=== PATIENT | male | born 1975 | race Caucasian/White ===

== ENCOUNTER 2020-07-06 19:06 | Inpatient (IN) | payer OTHER ==
[~2020-07-06] VITALS: Ht 185.4 cm; Wt 101.6 kg
[2020-07-06] MEDS ORDERED: LEVETIRACETAM500 M3 PO (19:27)
[2020-07-06] MEDS ORDERED: DEXA2 PO (19:31)
[2020-07-06 19:39] LABS: BASOPHILS ABSOLUTE AUTO 0.02 K/mm3 (0.00-0.23); BASOPHILS PERCENT AUTO 0 % (0-2); EOSINOPHILS ABSOLUTE AUTO 0.03 K/mm3 (0.00-0.68); EOSINOPHILS PERCENT AUTO 0 % (0-6); Hematocrit 42.5 % (37.0-53.0); Hemoglobin 14.9 g/dL (13.5-17.5); IMMATURE GRAN ABSOLUTE AUTO 0.27 K/mm3 (0.00-0.10); IMMATURE GRAN PERCENT AUTO 3 % (0-1); LYMPHOCYTES ABSOLUTE AUTO 0.72 K/mm3 (0.84-5.20); LYMPHOCYTES PERCENT AUTO 8 % (21-46); MONOCYTES ABSOLUTE AUTO 0.51 K/mm3 (0.16-1.47); MONOCYTES PERCENT AUTO 6 % (4-13); Mean Corpuscular HGB 30.1 pg (26.0-34.0); Mean Corpuscular HGB Conc 35.1 g/dL (31.5-36.5); Mean Corpuscular Volume 86 fL (80-100); Mean Platelet Volume 8.3 fL (9.1-12.4); NEUTROPHILS ABSOLUTE AUTO 7.21 K/mm3 (1.96-9.15); NEUTROPHILS PERCENT AUTO 82 % (41-73); Platelet Count 174 K/mm3 (150-400); RDW Coefficient Variation 13.1 % (11.7-14.2); RDW Standard Deviation 40.6 fL (35.1-46.3); Red Blood Cell Count 4.95 M/mm3 (4.30-5.90); White Blood Cell Count 8.76 K/mm3 (4.00-11.30)
[2020-07-06 19:57] LABS: Alanine Aminotransfer (ALT/SGP 69 U/L (12-78); Albumin, Blood 3.3 g/dL (3.4-5.0); Albumin/Globulin Ratio 0.8 (0.8-1.8); Alk Phos 78 U/L (50-136); Anion Gap 10 mmol/L (6-16); Aspartate Aminotrans (AST/SGOT 17 U/L (12-37); Bilirubin, Total 2.1 mg/dL (0.1-1.0); Blood Urea Nitrogen 15 mg/dL (8-24); Bun/Creatinine Ratio 28.6 (12.0-20.0); CO2, Blood 26 mmol/L (21-32); Chloride, Blood 91 mmol/L (98-108); Creatinine, Blood 0.52 mg/dL (0.60-1.20); Globulin, Blood 4.2 g/dL (2.2-4.0); Glomerular Filtration Rate >60 (60-); Glucose, Blood 126 mg/dL (70-99); Sodium, Blood 127 mmol/L (136-145); Total Protein, Blood 7.5 g/dL (6.4-8.2)
[2020-07-06] MEDS ORDERED: Dilaudid 2 mg Ta2 MG PO (21:06)
[2020-07-06] MEDS ORDERED: Ondansetron Odt8 MG SL (21:07)
[2020-07-07 04:22] LABS: BASOPHILS ABSOLUTE AUTO 0.02 K/mm3 (0.00-0.23); BASOPHILS PERCENT AUTO 0 % (0-2); EOSINOPHILS PERCENT AUTO 0 % (0-6); Hematocrit 39.1 % (37.0-53.0); Hemoglobin 13.6 g/dL (13.5-17.5); IMMATURE GRAN PERCENT AUTO 4 % (0-1); LYMPHOCYTES ABSOLUTE AUTO 0.42 K/mm3 (0.84-5.20); LYMPHOCYTES PERCENT AUTO 6 % (21-46); MONOCYTES ABSOLUTE AUTO 0.29 K/mm3 (0.16-1.47); MONOCYTES PERCENT AUTO 4 % (4-13); Mean Corpuscular HGB Conc 34.8 g/dL (31.5-36.5); Mean Corpuscular Volume 86 fL (80-100); Mean Platelet Volume 8.4 fL (9.1-12.4); NEUTROPHILS ABSOLUTE AUTO 6.45 K/mm3 (1.96-9.15); NEUTROPHILS PERCENT AUTO 86 % (41-73); Platelet Count 185 K/mm3 (150-400); RDW Coefficient Variation 13.1 % (11.7-14.2); RDW Standard Deviation 40.8 fL (35.1-46.3); Red Blood Cell Count 4.54 M/mm3 (4.30-5.90); White Blood Cell Count 7.48 K/mm3 (4.00-11.30)
--- NOTE | 2020-07-07 04:36 | NUR ---
ASSUMED CARE REPORT RECIEVED FROM ICU NURSE. PT TRANSFERRED TO UNIT BY BED. VS STABLE UPON ADMIT.
[2020-07-07 04:47] LABS: Anion Gap 9 mmol/L (6-16); Blood Urea Nitrogen 11 mg/dL (8-24); Bun/Creatinine Ratio 19.6 (12.0-20.0); CO2, Blood 25 mmol/L (21-32); Calcium, Blood 8.6 mg/dL (8.5-10.1); Chloride, Blood 94 mmol/L (98-108); Creatinine, Blood 0.56 mg/dL (0.60-1.20); Glomerular Filtration Rate >60 (60-); Glucose, Blood 128 mg/dL (70-99); Potassium, Blood 3.8 mmol/L (3.5-5.5); Sodium, Blood 128 mmol/L (136-145)
--- NOTE | 2020-07-07 06:45 | NUR ---
SHIFT SUMMARY PT SLEPT T/O NIGHT. PT EXHIBITS WEAKNESS IN R ARM. PT ABLE TO STATE NAME AND 'S NAME, DOES NOT KNOW CURRENT LOCATION. PT'S SPEECH IMPROVED T/O SHIFT. VS STABLE. PT REPORTS NO PAIN. 02 SATURATION ABOVE 92% ON RA. VS STABLE. NO SEIZURE ACTIVITY DURING SHIFT. BED IN LOW POSITION, SIDE RAILS PADDED FOR SEIZURE PRECAUTIONS. WILL CONTINUE TO MONITOR UNTIL SHIFT REPORT GIVEN TO ONCOMING DAYSHIFT RN.
--- NOTE | 2020-07-07 17:18 | NUR ---
SHIFT SUMMARY THIS AM PT RESPONDING TO VERBAL STIMULI; PT WAKING TO ANSWER QUESTIONS BUT WOULD FALL BACK ASLEEP. THIS AFTERNOON PT A&Ox4; CALM AND COOPERATIVE WITH CARE. PT RESTING IN BED DURING SHIFT; REPOSITIONING SELF IN BED. PT DENIES PAIN, CHEST PAIN, SOB, NAUSEA AND DIZZINESS. PT STATES HE IS FEELING BETTER. VSS. NOTIIFED DR COSTLELO OF IMPROVEMENT; NEW ORDERS FOR MED WITH NO TELE; REG DIET. NO OTHER ACUTE CHANGES NOTED DURING SHIFT. WILL CONTINUE TO MONITOR UNTIL REPORT GIVEN TO ONCOMING RN.
[2020-07-07] MEDS ORDERED: ACET325 PO (18:59)
--- NOTE | 2020-07-07 19:26 | NUR ---
PT ADAMANT ABOUT GOING HOME TONIGHT; STATES HE WILL RECOVER BETTER AT HOME WHERE HE IS COMFORTABLE. PT TOLERATED DINNER AND UP WITH SBA TO SHOWER. NOTIFIED DR COSTELLO; NEW ORDERS FOR DISCHARGE. PRESCRIPTIONS FAXED TO [facility] PER PT REQUEST. DIANELYS RN EDUCATED PT ON DISCHARGE INSTURCTIONS, FOLLOW UP APPOINTMENTS AND MEDICATION. PT LEFT ROOM VIA WHEELCHAIR AT 1920.
== END 2020-07-07 19:23 | disposition home or self-care (01) | DRG 54 ==
LOC: ER 19:06 → PCU 19:07
PROVIDERS: Emergency Medicine; Nurse Practitioner Acute Care; ADMIT Internal Medicine
DX: C79.31 Secondary malignant neoplasm of brain (principal); G93.6 Cerebral edema; E87.1 Hypo-osmolality and hyponatremia; R56.9 Unspecified convulsions; Z98.52 Vasectomy status; C43.62 Malignant melanoma of left upper limb, including shoulder; E86.0 Dehydration
CPT/HCPCS: 36415; 70450; 80048; 80053; 83690; 85025; 93005; 93010; 94762; 96365; 96375; 96376; 99283-25; G0378; J1100; J1953; J2405; J7030

== ENCOUNTER 2020-07-21 10:05 | Inpatient (IN) | payer OTHER ==
[~2020-07-21] VITALS: Ht 177.8 cm; Wt 104.3 kg
[~2020-07-21 10:05] MED LIST: ACET325 PO; DEXA2 PO; Dilaudid 2 mg Ta2 MG PO; LEVETIRACETAM500 M3 PO; Ondansetron Odt8 MG MM
[2020-07-21 10:36] LABS: BASOPHILS ABSOLUTE AUTO 0.08 K/mm3 (0.00-0.23); BASOPHILS PERCENT AUTO 1 % (0-2); EOSINOPHILS PERCENT AUTO 0 % (0-6); Hematocrit 46.1 % (37.0-53.0); Hemoglobin 16.2 g/dL (13.5-17.5); IMMATURE GRAN ABSOLUTE AUTO 0.68 K/mm3 (0.00-0.10); IMMATURE GRAN PERCENT AUTO 5 % (0-1); LYMPHOCYTES ABSOLUTE AUTO 2.23 K/mm3 (0.84-5.20); LYMPHOCYTES PERCENT AUTO 17 % (21-46); MONOCYTES ABSOLUTE AUTO 0.94 K/mm3 (0.16-1.47); MONOCYTES PERCENT AUTO 7 % (4-13); Mean Corpuscular HGB 29.9 pg (26.0-34.0); Mean Corpuscular HGB Conc 35.1 g/dL (31.5-36.5); Mean Corpuscular Volume 85 fL (80-100); Mean Platelet Volume 8.7 fL (9.1-12.4); NEUTROPHILS ABSOLUTE AUTO 9.17 K/mm3 (1.96-9.15); NEUTROPHILS PERCENT AUTO 70 % (41-73); Platelet Count 458 K/mm3 (150-400); RDW Coefficient Variation 13.3 % (11.7-14.2); RDW Standard Deviation 41.2 fL (35.1-46.3); Red Blood Cell Count 5.41 M/mm3 (4.30-5.90)
[2020-07-21 10:54] LABS: Alanine Aminotransfer (ALT/SGP 2107 U/L (12-78); Albumin, Blood 2.8 g/dL (3.4-5.0); Albumin/Globulin Ratio 0.7 (0.8-1.8); Alk Phos 463 U/L (50-136); Anion Gap 7 mmol/L (6-16); Aspartate Aminotrans (AST/SGOT 544 U/L (12-37); Bilirubin, Total 8.3 mg/dL (0.1-1.0); Blood Urea Nitrogen 13 mg/dL (8-24); Bun/Creatinine Ratio 24.8 (12.0-20.0); CO2, Blood 26 mmol/L (21-32); Chloride, Blood 100 mmol/L (98-108); Creatinine, Blood 0.53 mg/dL (0.60-1.20); Globulin, Blood 4.1 g/dL (2.2-4.0); Glomerular Filtration Rate >60 (60-); Glucose, Blood 130 mg/dL (70-99); Potassium, Blood 4.5 mmol/L (3.5-5.5); Sodium, Blood 133 mmol/L (136-145); Total Protein, Blood 6.9 g/dL (6.4-8.2)
[2020-07-21] MEDS ORDERED: NYSTATIN100000 UN2 MM (16:08)
[2020-07-21] MEDS ORDERED: DEXA4 PO (16:09)
--- NOTE | 2020-07-21 16:30 | NUR ---
Initial palliative care consult: Requested by [facility] social service in ER, to come visit with pt and prior to dc back home. Pt and visited in ER 14. 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 He had a gamma knife procedure X 2 and immunotherapy all recently. They state that he doesn't want to continue with the immunotherapy. He would like to pursue naturopathic treatment for his cancer. They are not wanting "anything toxic" to be put into his system. He is followed by an oncologist in [place]. They are wanting home health set up for IV fluids at home. Mikala states he has been unable to keep food and fluids down for about 5 days. He came into the ER to get IV fluids. He has sores in his mouth which his oncologist believes to be thrush and he was started on nystatin yesterday for this. He has had one dose. Kimi answers most of the questions, however, Mikala would interject his thoughts during the conversation without ever opening his eyes. They state that his oncologist has never talked to him about hospice as an option. Neither Mikala or Kimi are open to considering hospice at this time. Mikala wants fluids and to keep trying naturopathic treatments. He is requesting to be admitted as he is fearful that if he goes home he will come right back for fluids because he is unable to take in fluids. He has mostly been bedbound at home recently. Spoke with [facility], Shama, and Dr. Prado. Chart reviewed. Dr. Prado states pt's lab work (LFTs) have significantly elevated since last admission. He will contact hospitalist for hospital admission. PC will work with pt and Kimi re: advanced care planning. At this time they are not open to hospice as an option. He wants to remain a full code and purse treatment at this time. Will follow for symptom managment and advanced care planning and support.
[2020-07-21] MEDS ORDERED: HYDMOR2 PO (18:22)
[2020-07-22 03:33] LABS: Source, Urine Clean Catch
[2020-07-22 03:35] LABS: Appearance, Urine Clear (Clear); Blood, Urine 2+ (Neg); Color, Urine Amber (P-Yellow); Glucose Qualitative, Urine Neg (Neg); Ketones, Urine 3+ (Neg); Leukocyte Esterase, Urine 1+ (Neg); Nitrite, Urine Neg (Neg); Protein, Urine 1+ (Neg); Specific Gravity, Urine 1.015 (1.003-1.022); Urobilinogen, Urine 2+ (Normal)
[2020-07-22 03:36] LABS: Bilirubin, Urine 3+ (Neg)
[2020-07-22 03:41] LABS: Bacteria Mod /hpf; Squamous Epithelial Cells Not Seen /hpf (Few); White Blood Cells, Urine 0-2 /hpf (0-5)
[2020-07-22 03:42] LABS: Hyaline Casts 0-2 /lpf (0-2); WBC Cast 0-2 /lpf (0)
[2020-07-22 04:37] LABS: Hematocrit 42.7 % (37.0-53.0); Hemoglobin 14.4 g/dL (13.5-17.5); Mean Corpuscular HGB 29.5 pg (26.0-34.0); Mean Corpuscular HGB Conc 33.7 g/dL (31.5-36.5); Mean Corpuscular Volume 88 fL (80-100); Mean Platelet Volume 9.1 fL (9.1-12.4); Platelet Count 337 K/mm3 (150-400); RDW Coefficient Variation 13.4 % (11.7-14.2); Red Blood Cell Count 4.88 M/mm3 (4.30-5.90); White Blood Cell Count 7.62 K/mm3 (4.00-11.30)
--- NOTE | 2020-07-22 04:38 | NUR ---
SUMMARY PT ARRIVED TO FLOOR IN DISCOMFORT. PT C/O MOUTH AND HEAD PAIN. PT TX PER EMAR WITH GOOD RELIEF. PT IN ATTENDENCE. PT IS REQUIRING FREQUENT ORAL SUCTIONING FOR THICK SECRETIONS. DESPITE SECRETIONS PT C/O DRY MOUTH. PT IS FREQUENTLY PERFORMING ORAL CARE ON PT TO INCREASE COMFORT. PT DID C/O OF SOME NAUSEA LATER IN SHIFT. PT HAS VOIDED DARK LEESA URINE, UA SENT TO LAB. PT IS CURRENTLY SLEEPING AND BREATHING EASY. CALL LIGHT IN REACH.
[2020-07-22 05:15] LABS: BAND PERCENT MAN 4 % (0-8); BASOPHILS PERCENT MAN 0 % (0-2); EOSINOPHILS PERCENT MAN 0 % (0-6); LYMPHOCYTES ABSOLUTE MAN 0.99 K/mm3 (0.84-5.20); LYMPHOCYTES PERCENT MAN 13 % (21-46); METAMYELOCYTE ABSOLUTE MAN 0.07 K/mm3 (0.00-0.00); METAMYELOCYTE PERCENT MAN 1 % (0-0); MONOCYTES ABSOLUTE MAN 0.38 K/mm3 (0.16-1.47); MONOCYTES PERCENT MAN 5 % (4-13); NEUTROPHILS ABSOLUTE MAN 6.17 K/mm3 (1.96-9.15); SEG NEUTROPHILS PERCENT MAN 77 % (41-73); TOTAL CELLS COUNTED 100
[2020-07-22 05:17] LABS: Alanine Aminotransfer (ALT/SGP 1771 U/L (12-78); Albumin, Blood 2.4 g/dL (3.4-5.0); Albumin/Globulin Ratio 0.6 (0.8-1.8); Alk Phos 419 U/L (50-136); Anion Gap 6 mmol/L (6-16); Aspartate Aminotrans (AST/SGOT 366 U/L (12-37); Bilirubin, Total 8.3 mg/dL (0.1-1.0); Blood Urea Nitrogen 7 mg/dL (8-24); Bun/Creatinine Ratio 14.6 (12.0-20.0); CO2, Blood 27 mmol/L (21-32); Calcium, Blood 8.3 mg/dL (8.5-10.1); Chloride, Blood 102 mmol/L (98-108); Creatinine, Blood 0.48 mg/dL (0.60-1.20); Globulin, Blood 3.7 g/dL (2.2-4.0); Glomerular Filtration Rate >60 (60-); Glucose, Blood 117 mg/dL (70-99); Potassium, Blood 3.6 mmol/L (3.5-5.5); Sodium, Blood 135 mmol/L (136-145); Total Protein, Blood 6.1 g/dL (6.4-8.2)
[2020-07-22 14:15] LABS: International Normalized Ratio 1.14; Prothrombin Time Results 12.1 Sec (9.7-11.5)
[2020-07-22 14:27] LABS: Alanine Aminotransfer (ALT/SGP 1566 U/L (12-78); Albumin, Blood 2.3 g/dL (3.4-5.0); Albumin/Globulin Ratio 0.6 (0.8-1.8); Alk Phos 420 U/L (50-136); Anion Gap 4 mmol/L (6-16); Aspartate Aminotrans (AST/SGOT 341 U/L (12-37); Bilirubin, Total 8.2 mg/dL (0.1-1.0); Blood Urea Nitrogen 7 mg/dL (8-24); Bun/Creatinine Ratio 13.6 (12.0-20.0); CO2, Blood 30 mmol/L (21-32); Calcium, Blood 8.6 mg/dL (8.5-10.1); Chloride, Blood 101 mmol/L (98-108); Creatinine, Blood 0.52 mg/dL (0.60-1.20); Globulin, Blood 3.6 g/dL (2.2-4.0); Glomerular Filtration Rate >60 (60-); Glucose, Blood 107 mg/dL (70-99); Potassium, Blood 3.9 mmol/L (3.5-5.5); Sodium, Blood 135 mmol/L (136-145); Total Protein, Blood 5.9 g/dL (6.4-8.2)
--- NOTE | 2020-07-22 18:25 | NUR ---
SHIFT SUMMARY. A&OX3, AWARE OF LIMITATIONS, AT BEDSIDE MOST OF THE SHIFT ASSISTING PT WITH URINAL AND SUCTIONING. PT REQUIRED SUCTIONING WITH ORAL CARE SEVERAL TIMES THIS SHIFT, APPROXIMATLEY Q1-2H. PT C/O SOB WHEN SUCTIONING IS NEEDED, SOB RESOLVES WITH SUCTIONING, SECRETIONS ARE THICK YELLOWISH GREEN MUCUS. PT REPORTS PAIN TO HEAD AND MOUTH, PAIN MANAGED WELL WITH CURRENT ORDERS, SEE MAR. PT WITH DIFFUSE RASH TO CHEST, BACK, AND HEAD, PT C/O SEVERE ITCHINESS, DR. HOLDEN NOTIFIED AND RECIEVED ORDERS FOR HYDROCORTISONE CREAM, CREAM GAVE PT RELIEF. ABD ULTRASOUND AND CXR COMPLETED THIS SHIFT. PT STARTED ON IV CLINIMIX TODAY THERE HAS BEEN NO PO INTAKE. NO OTHER CHANGES OR CONCERNS.
--- NOTE | 2020-07-23 03:47 | NUR ---
EMAIL PRODUCER SUMMARY PT EXPERIENCING INCREASED PAIN TONIGHT AND REQUESTED FULL DOSE OF PAIN MEDICATION MULTIPLE TIMES. PT DECLINED THE INSERTION OF A SECOND IV SO THAT MULTIPLE FLUIDS/MEDS COULD BE GIVEN CONCURRENTLY AND EXPRESSED HIS DESIRE FOR A MULTPLE LUMEN LINE SO THAT LAB WOULDNT HAVE TO "POKE" HIM SO MANY TIMES. PT'S SECRETIONS APPEAR MODERATLEY DECREASED HE HAS REQUIRED LESS SUCTIONING THIS SHIFT. PT DISPLAYED INCREASED AGITATION THIS SHIFT DUE TO PAIN AND EXHAUSTION BUT DECLINED THE DESIRE FOR ANY MEDICATION FOR SLEEP.
--- NOTE | 2020-07-23 05:57 | NUR ---
PT REFUSED TO HAVE LABS DRAWN THIS AM BECAUSE HE WANTED TO SLEEP UNDISTURBED AND DID NOT WANT TO BE POKED AGAIN.
[2020-07-23 13:51] LABS: Albumin, Blood 2.3 g/dL (3.4-5.0); Albumin/Globulin Ratio 0.6 (0.8-1.8); Alk Phos 432 U/L (50-136); Anion Gap 6 mmol/L (6-16); Aspartate Aminotrans (AST/SGOT 376 U/L (12-37); Bilirubin, Total 6.2 mg/dL (0.1-1.0); Blood Urea Nitrogen 11 mg/dL (8-24); CO2, Blood 29 mmol/L (21-32); Calcium, Blood 9.1 mg/dL (8.5-10.1); Chloride, Blood 103 mmol/L (98-108); Creatinine, Blood 0.33 mg/dL (0.60-1.20); Globulin, Blood 3.8 g/dL (2.2-4.0); Glomerular Filtration Rate >60 (60-); Glucose, Blood 138 mg/dL (70-99); Potassium, Blood 3.9 mmol/L (3.5-5.5); Sodium, Blood 138 mmol/L (136-145); Total Protein, Blood 6.1 g/dL (6.4-8.2)
[2020-07-23 13:57] LABS: Alanine Aminotransfer (ALT/SGP 1534 U/L (12-78)
--- NOTE | 2020-07-23 19:30 | NUR ---
SHIFT SUMMARY. PT IN CONSTANT PAIN THIS SHIFT, PAIN MANAGED WELL WITH CURRENT ORDERS. NO N/V. PT REPORTS SOB WHEN NEEDING ORAL CARE AND SUCTIONING. AT BEDSIDE MOST OF SHIFT PROVIDING ORAL CARE AND EYE COMPRESSES. PT SEEN BY DERMATOLOGY, ENT TODAY, RN TO CALL IN OPTHAMOLOGY CONSULT IN AM. CIPRO EYE DROPS STARTED TODAY. NO OTHER CHANGES OR CONCERNS.
[2020-07-24 06:48] LABS: Albumin, Blood 2.3 g/dL (3.4-5.0); Albumin/Globulin Ratio 0.6 (0.8-1.8); Alk Phos 475 U/L (50-136); Anion Gap 6 mmol/L (6-16); Aspartate Aminotrans (AST/SGOT 423 U/L (12-37); Bilirubin, Total 6.3 mg/dL (0.1-1.0); Blood Urea Nitrogen 12 mg/dL (8-24); Bun/Creatinine Ratio 26.7 (12.0-20.0); CO2, Blood 28 mmol/L (21-32); Calcium, Blood 8.7 mg/dL (8.5-10.1); Chloride, Blood 101 mmol/L (98-108); Creatinine, Blood 0.45 mg/dL (0.60-1.20); Globulin, Blood 3.8 g/dL (2.2-4.0); Glomerular Filtration Rate >60 (60-); Glucose, Blood 155 mg/dL (70-99); Magnesium, Blood 2.7 mg/dL (1.6-2.4); Phosphorus, Blood 3.5 mg/dL (2.5-4.9); Potassium, Blood 4.8 mmol/L (3.5-5.5); Sodium, Blood 135 mmol/L (136-145); Total Protein, Blood 6.1 g/dL (6.4-8.2); Triglycerides 447 mg/dL (30-160)
[2020-07-24 06:51] LABS: Alanine Aminotransfer (ALT/SGP 1601 U/L (12-78)
--- NOTE | 2020-07-24 07:28 | NUR ---
SHIFT SUMMARY AOX4. VSS. DENIES NAUSEA OR DYSPNEA. REPORTS 8-10/10 PAIN ALLOVER FACE, HEAD, MOUTH, NECK, MEDICATED 3X c 2MG IV DILAUDID, PT REPORTS RELIEF-PAIN LEVEL DECREASING TO 4/10. PT REFUSED CIPRO EYE DROPS T/O NIGHT, STATED HE WAS WEARY TO USE UNTIL THEY FIGURED OUT DX OF WHAT WAS CAUSING RASH. PT ASKED FOR REG NATURAL EYE DROPS, DR FLORENCE ORDERED. RED RASH c OPEN BLISTERS ARE SCATTERED T/O UPPER TORSO, NECK, HEAD, FACE-SOME ARE WEEPING SMALL AMOUNT YELLOWISH DRAINAGE. PT USING SUCTION FOR ORAL SORES. STATES IT IS TOO PAINFUL TO OPEN EYES. CALL LIGHT IN REACH & HAS BEEN @BEDSIDE T/O NIGHT.
[2020-07-24 09:09] LABS: COMPLEMENT C3, SERUM 174 mg/dL (82-167); COMPLEMENT C4, SERUM 24 mg/dL (14-44)
--- NOTE | 2020-07-24 16:39 | NUR ---
DISCHARGE PT DISCHARGED TO [facility] VIA AMBULANCE. THIS RN GAVE REPORT TO RN AT [facility]. PT 4 PERSON SLIDE TO JOEL. PETROLEUM DRESSINGS PLACED TO BLISTERS AND OPEN AREAS OF BACK PER DR. COCHRAN RECOMMENDATION. BELONGINGS WITH PT'S . CLINIMIX AND LIPIDS WITH PT INFUSING.
[2020-07-24 18:09] LABS: ANTI-DSDNA ANTIBODIES 1 IU/mL (0-9); RNP ANTIBODIES <0.2 AI (0.0-0.9); SJOGREN'S ANTI-SS-A 0.3 AI (0.0-0.9); SJOGREN'S ANTI-SS-B <0.2 AI (0.0-0.9); SMITH ANTIBODIES <0.2 AI (0.0-0.9)
[2020-07-25 00:10] LABS: HBSAG SCREEN Negative (Negative); HEP A AB, IGM Negative (Negative); HEP B CORE AB, IGM Negative (Negative); HEP C VIRUS AB <0.1 (0.0-0.9)
== END 2020-07-24 16:30 | disposition short-term general hospital (02) | DRG 871 ==
LOC: ER 10:05 → MEDS 20:15
PROVIDERS: Emergency Medicine; Family Medicine; Internal Medicine Gastroenterology; ADMIT Internal Medicine
DX: A41.9 Sepsis, unspecified organism (principal); J18.9 Pneumonia, unspecified organism; E43 Unspecified severe protein-calorie malnutrition; B37.0 Candidal stomatitis; C79.31 Secondary malignant neoplasm of brain; E87.1 Hypo-osmolality and hyponatremia; B37.81 Candidal esophagitis; L51.3 Stevens-Johnson syndrome-toxic epidermal necrolysis overlap syndrome; E86.0 Dehydration; C43.9 Malignant melanoma of skin, unspecified; G40.909 Epilepsy, unspecified, not intractable, without status epilepticus; T45.1X5A Adverse effect of antineoplastic and immunosuppressive drugs, initial encounter; Y92.9 Unspecified place or not applicable; K71.9 Toxic liver disease, unspecified; Z20.828 Contact with and (suspected) exposure to other viral communicable diseases
CPT/HCPCS: 36415; 71046; 74177; 76705; 80053; 80074; 81001; 83605; 83735; 84100; 84145; 84478; 85025; 85610; 86038; 86160; 86225; 86235; 86645; 86694; 87070; 87205; 88305; 96361; 96365-59; 96368; 96375; 96376; 99285-25; A9270; C1751; C9113; C9254; J0456; J0696; J1100; J1170; J1450; J1650; J1953; J2405; J2543; J2550; J2920; J7030; J7050; Q9967; U0002